=== PATIENT | female | born 1970 | race Asian ===

== ENCOUNTER → 2016-08-18 | Outpatient (CLI) | payer BC ==
[~2016-08-18] MED LIST: CITA20TA9 PO; LITH300T PO; VTMEUNK PO; vit B PO
[2016-08-18 17:55] LABS: BASO % 0.2 %; BASO ABS # 0.01 K/uL (0-0.2); COMPLETE YES; EOS % 1.3 %; HEMATOCRIT 38.3 % (37-47); IG% 0.2 %; LYMPH % 37.4 %; LYMPH ABS # 1.71 K/uL (1.2-3.4); MEAN CELL VOLUME 98.2 fL (80-100); MEAN CORPUSCULAR HEMOGLOBIN 33.3 pg (25-34); MEAN CORPUSCULAR HGB CONC 33.9 g/dl (32-36); MEAN PLATELET VOLUME 9.5 fL (7.4-10.4); MONO % 12.9 %; PLATELET COUNT 218 K/uL (130-400); WHITE BLOOD COUNT 4.57 K/uL (4.8-10.8)
[2016-08-18 18:30] LABS: ALB/GLOB RATIO 1.2 (0.9-2); ALKALINE PHOSPHATASE 41 U/L (45-117); ALT/SGPT 17 U/L (12-78); AMYLASE 54 U/L (25-115); AST/SGOT 15 U/L (15-37); BLOOD UREA NITROGEN 9 mg/dl (7-18); BUN/CREATININE RATIO 12.4 (10-20); CALCIUM 8.7 mg/dl (8.5-10.1); CARBON DIOXIDE 27 mmol/L (21-32); CHLORIDE 106 mmol/L (98-107); CREATININE 0.74 mg/dl (0.60-1.20); GLUCOSE 86 mg/dl (70-99); POTASSIUM 3.7 mmol/L (3.5-5.1); SODIUM 139 mmol/L (136-145)
== END | disposition home or self-care (01) ==
LOC: C.LAB 17:08
PROVIDERS: ATTEND Psychiatry & Neurology Psychiatry
DX: F33.40 Major depressive disorder, recurrent, in remission, unspecified (principal)

== ENCOUNTER → 2017-06-18 | Outpatient (CLI) | payer OTHER | END | disposition home or self-care (01) | LOC: C.LAB 21:52 | DX: Z02.83 Encounter for blood-alcohol and blood-drug test (principal) ==

== ENCOUNTER 2017-07-11 10:21 | Emergency (ER) | payer OTHER ==
[~2017-07-11] VITALS: Ht 165.1 cm; Wt 72.1 kg
[2017-07-11 10:31] VITALS: TEMP 36.9; Ht 165.1 cm; Wt 72.1 kg
[2017-07-11 11:52] VITALS: BP 149/79; PULSE 74; O2SAT 97
--- NOTE | 2017-07-11 21:21 | EMERGENCY ROOM VISIT NOTE ---
History First contact with patient: 10:59 Chief Complaint: HEAD INJURY (MINOR) Stated Complaint: CONCUSSION History of Present Illness The patient is a 47 year old female who presents to the Emergency Room with complaints of concussion-like symptoms after suffering a head injury on Monday. The patient reports that she tripped and struck her head on her bathroom wall. She believes that she did have loss of consciousness, but reports that her symptoms have been improving since her fall. 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 The patient does have a psychiatrist, and went to her, but was instructed that she should come to the emergency department for a physical exam in order to return to work. The patient currently complains only of a mild headache with fatigue. She denies any persistent visual symptoms, tinnitus, neck pain, nausea or other significant symptoms. She rates her discomfort a 4 out of 10 on my exam. Review of Systems 10 system review was performed and was negative except for pertinent positives and negatives as indicated in history of present illness Past Medical/Surgical History Medical Problems: (1) Anxiety (2) Depression (3) Migraine (4) [place] Teeth Removal Family History Unremarkable Social History Smoking Status: Current Every Day Smoker Alcohol Use: occasionally Marital Status: single Occupation Status: employed Current/Historical Medications Scheduled Citalopram Hydrobromide (Celexa), 30 MG PO DAILY [place] Carbonate (Lithobid Ext Rel), 300 MG PO QAM [place] Carbonate (Lithobid Ext Rel), 600 MG PO HS Tocopheryl Acet,Dl-Alpha (Vitamin E Unkown Dose), 1 TAB PO DAILY [vit B], 1 TAB PO DAILY Physical Exam Vital Signs Date Time Temp Pulse Resp B/P (MAP) Pulse Ox O2 Delivery O2 Flow Rate FiO2 07/11/17 11:52 74 16 149/79 97 07/11/17 11:05 20 97 07/11/17 10:31 36.9 60 20 135/62 97 Room Air Physical Exam CONSTITUTIONAL: Healthy and well nourished. Alert and oriented X 3 with positive affect. GCS 15. Patient does not appear in any acute distress. HEENT: Normocephalic, atraumatic. Pupils equal, round and reactive. No subconjunctival hemorrhage, epistaxis, hemotympanum, raccoon's eyes or ontiveros sign. NECK: Full active range of motion without discomfort. RESPIRATORY: Clear to auscultation bilaterally with no wheezing, crackles, rhonchi or stridor. CARDIOVASCULAR: Regular rate and rhythm with no murmurs, rubs or gallops. GASTROINTESTINAL: Bowel sounds present in all quadrants. MUSCULOSKELETAL: Full range of motion of all joints without discomfort. INTEGUMENTARY: No rash or other significant dermatologic conditions noted. NEUROLOGIC: Cranial nerves II-XII grossly intact. No focal neurologic deficits noted. No ataxia with ambulation. Negative pronator drift. Negative Romberg sign. Medical Decision & Procedures ED Course Patient history and physical exam were performed. Nurse's notes were reviewed. Vital signs were reviewed and were normal. The patient's physical and neurologic exam are normal. She reports that her symptoms are improving. At this point, I suggested conservative management. The patient reports that she has had a concussion before in the past. I explained to the patient that some concussions can take several weeks to resolve. I explained to the patient that I do not feel comfortable providing work restrictions, but rather would provide a note to work explaining that she did have a concussion, and should have limited activities until symptoms improve. The patient may follow-up with her PCP or the [facility]. The patient was encouraged to call this office, and if she needs a referral, contact her PCP for initial management. She was encouraged to take Tylenol or ibuprofen as needed for her headache. The patient was happy with plan of care, and rated her discomfort a 4 out of 10 at the conclusion of my exam. Medical Decision Blood Pressure Screening Patient's blood pressure: Normal blood pressure Impression Primary Impression: Concussion Departure Information Dispostion Home / Self-Care Condition GOOD Referrals Eleazar Murphy III, CRNP (PCP) Haydee De Leon MD Forms HOME CARE DOCUMENTATION FORM, IMPORTANT VISIT INFORMATION Patient Instructions Concussion, My Flipzu Additional Instructions Read concussion handout. Limited activities until symptoms improve. Ibuprofen or Tylenol as needed for pain. Suggest follow-up with your family doctor or the [facility] concussion clinic (Dr. De Leon) for further concussion management. Return to the emergency department for any progressively worsening symptoms. FOR WORK: Limited activities as tolerated secondary to concussion symptoms. Further work restrictions can be provided by family doctor or the concussion clinic. Problem Qualifiers Primary Impression: Concussion Encounter type: initial encounter Loss of consciousness presence/duration: with LOC of 30 min or less Qualified Codes: S06.0X1A - Concussion with loss of consciousness of 30 minutes or less, initial encounter
== END 2017-07-11 11:53 | disposition home or self-care (01) ==
LOC: C.EDB 10:23 → C.EDC 11:53
DX: S06.0X1A Concussion with loss of consciousness of 30 minutes or less, initial encounter (principal); W18.09XA Striking against other object with subsequent fall, initial encounter; F41.9 Anxiety disorder, unspecified; F32.9 Major depressive disorder, single episode, unspecified; F17.210 Nicotine dependence, cigarettes, uncomplicated; Z79.899 Other long term (current) drug therapy

== ENCOUNTER 2020-08-17 13:45 | Observation (INO) ==
[2020-08-17] MEDS ORDERED: ONDANSETRON INJ 2 MG/ML 2 ML VIAL IV STA (14:26)
--- NOTE | 2020-08-17 14:42 | Emergency Department Note ---
History of Present Illness General Chief complaint: Abdominal Pain Stated complaint: REFERRED BY DR. ALVAREZ Time Seen by Provider: 08/17/20 14:06 Source: patient Mode of arrival: ambulatory Limitations: no limitations History of Present Illness Maximum Pain Intensity: 6 This patient is a 50-year-old female who presents to the emergency department for evaluation of abdominal tenderness and fevers. Patient states that she had a total hysterectomy with bilateral oophorectomy and removal of a benign mass 2 weeks ago. She was seen in follow-up today and admitted that she has had fevers off and on since then. She has had significant nausea, although denies vomiting. She states that she has not been eating because she is afraid it will make her sick. Additionally, she has not been taking her medications due to her nausea and inability to take food with the medications. During her visit today, she was found to be very tender in the left upper quadrant and sent here for further evaluation. She reports she has had normal bowel movements. She denies any pain at rest. Patient also reportedly has had some significant weight loss since surgery. Home Medications Medication Instructions Recorded Confirmed Type multivitamin 1 tab PO QPM 05/05/20 08/17/20 History Medical Marijuana 1 dose INHALATION UD PRN 06/29/20 08/17/20 History biotin 1 mg PO QPM 06/29/20 08/17/20 History citalopram 10 mg tablet 10 mg PO QAM #90 tab 07/02/20 08/17/20 Rx citalopram 20 mg tablet 20 mg PO QAM #90 tab 07/02/20 08/17/20 Rx varenicline 0.5 mg (11)-1 mg (42) See Rx Instructions PO .as 07/02/20 08/17/20 Rx tablets in a dose pack directed #53 ea varenicline 1 mg tablet 1 mg PO BID 84 Days #168 tab 07/02/20 08/17/20 Rx ascorbic acid-collagen 3 cap PO DAILY 07/15/20 08/17/20 History oxycodone-acetaminophen 1 tab PO Q6H PRN #20 tab 08/03/20 08/17/20 Rx Allergies Allergy/AdvReac Type Severity Reaction Status Date / Time lamotrigine [From Lamictal] Allergy Severe Kole Verified 08/17/20 15:06 Rodney Syndrome latex Allergy Mild Rash Verified 08/17/20 15:06 Past Med/Surg History Medical History (Updated 08/18/20 @ 00:02 by Martha Diaz PA-C) Anxiety On meds and medical marijuana - well controlled Depressive disorder History of multiple concussions LAST EVENT 3 YEARS AGO 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 Seizure LAST EVENT OVER 1 YEAR AGO "MILD SEIZURE DISORDER/SHAKES ON THE INSIDE" CAUSED FROM ANXIETY Follows on with PCP/psychiatrist - no neurologist needed Urinary, incontinence, stress female Surgical History (Updated 08/17/20 @ 21:23 by Rogers Ruiz RN) H/O LEEP H/O total hysterectomy History of tonsillectomy Cougar teeth removed Family History Father Prostate cancer Colorectal cancer might have been - pt unsure if bladder or colon Cancer her dad just had surgery - she thinks for bladder cancer, could have been colon, she isn't 100% sure but thinks bladder Mother Depression Other No family history of adverse response to anesthesia Denies family history of Ovarian cancer Myocardial infarction Breast cancer Social History Smoking Status: Former smoker Tobacco Type: Cigarettes Age Started Using Tobacco: 13; Cigarettes Per Day: 6-10 CIG DAILY- TRYING TO QUIT PRIOR TO SURGERY - WILL BE STARTING CHANTIX; Smoking End Date: almost a month ago; Second Hand Exposure: No; Hx Alcohol Use: No Hx Substance Use: No Preferred Language: Ukrainian Communication Ability: Effective Visual Impairment: No Limitations Hearing Ability: Normal Fabricator Special Items Required: No Beliefs That Will Affect Care: None marital status: Current Living Situation: Alone Current Living Situation Comment: RENTING (1 OTHER PERSON IN HOUSE) current occupational status: employed current occupation: [employer] Other Information That Helps Us Care for You: No Feels Safe at Home: Yes Safety Concerns: Feels Safe At This Time Childhood Exposure to Second-Hand Smoke: No Dental Care, Regularly: Yes Physical Activity Frequency: Daily Seatbelt Use: always Sunscreen Use: No Assistive Devices: Glasses Assistive Devices Comment: Wears glasses Review of Systems A total of 10 systems reviewed and were otherwise negative Physical Exam Vital Signs Vital Signs - 24 hr 08/17/20 13:50 08/17/20 15:25 08/17/20 15:26 Temperature 36.5 C 36.7 C Temperature Source Oral Oral Pulse Rate 96 H 74 Pulse Rate [Right Finger] 77 Pulse Rate from SpO2 Sensor 74 Pulse Rhythm Regular Pulse Rhythm [Right Finger] Regular Pulse Strength Normal Respiratory Rate 18 16 16 Respiratory Effort / Characteristics Non-Labored Spontaneous Respiratory Depth Normal Normal Respiratory Pattern Regular Blood Pressure 105/69 106/62 Blood Pressure [Left Arm] 106/62 Blood Pressure Mean 81 76 Blood Pressure Mean [Left Arm] 76 Blood Pressure Position Sitting Pulse Oximetry 100 96 99 Oxygen Delivery Method Room Air Room Air Sepsis Recent Fever Within 48 Hours No Sepsis New/Unexplained Change in Mental Status No Sepsis Action Taken by Nursing No Action Required 08/17/20 15:29 08/17/20 15:30 08/17/20 15:40 Temperature Temperature Source Pulse Rate 77 77 76 Pulse Rate [Right Finger] Pulse Rate from SpO2 Sensor 77 77 76 Pulse Rhythm Pulse Rhythm [Right Finger] Pulse Strength Respiratory Rate 21 18 20 Respiratory Effort / Characteristics Respiratory Depth Respiratory Pattern Blood Pressure 108/63 Blood Pressure [Left Arm] Blood Pressure Mean 78 Blood Pressure Mean [Left Arm] Blood Pressure Position Pulse Oximetry 97 97 96 Oxygen Delivery Method Sepsis Recent Fever Within 48 Hours Sepsis New/Unexplained Change in Mental Status Sepsis Action Taken by Nursing 08/17/20 15:50 08/17/20 16:00 08/17/20 16:10 Temperature Temperature Source Pulse Rate 76 79 76 Pulse Rate [Right Finger] Pulse Rate from SpO2 Sensor 75 78 77 Pulse Rhythm Pulse Rhythm [Right Finger] Pulse Strength Respiratory Rate 21 17 19 Respiratory Effort / Characteristics Respiratory Depth Respiratory Pattern Blood Pressure 115/63 Blood Pressure [Left Arm] Blood Pressure Mean 80 Blood Pressure Mean [Left Arm] Blood Pressure Position Pulse Oximetry 97 97 97 Oxygen Delivery Method Sepsis Recent Fever Within 48 Hours Sepsis New/Unexplained Change in Mental Status Sepsis Action Taken by Nursing 08/17/20 16:20 08/17/20 16:30 08/17/20 16:31 Temperature Temperature Source Pulse Rate 77 82 76 Pulse Rate [Right Finger] Pulse Rate from SpO2 Sensor 77 82 77 Pulse Rhythm Pulse Rhythm [Right Finger] Pulse Strength Respiratory Rate 18 15 20 Respiratory Effort / Characteristics Respiratory Depth Respiratory Pattern Blood Pressure 113/66 Blood Pressure [Left Arm] Blood Pressure Mean 81 Blood Pressure Mean [Left Arm] Blood Pressure Position Pulse Oximetry 96 96 96 Oxygen Delivery Method Sepsis Recent Fever Within 48 Hours Sepsis New/Unexplained Change in Mental Status Sepsis Action Taken by Nursing 08/17/20 16:40 08/17/20 16:56 08/17/20 17:00 Temperature Temperature Source Oral Pulse Rate 78 85 79 Pulse Rate [Right Finger] 78 Pulse Rate from SpO2 Sensor 78 80 Pulse Rhythm Pulse Rhythm [Right Finger] Regular Pulse Strength Respiratory Rate 13 19 20 Respiratory Effort / Characteristics Non-Labored Respiratory Depth Normal Respiratory Pattern Blood Pressure Blood Pressure [Left Arm] 111/66 Blood Pressure Mean Blood Pressure Mean [Left Arm] 81 Blood Pressure Position Pulse Oximetry 97 99 Oxygen Delivery Method Room Air Sepsis Recent Fever Within 48 Hours Sepsis New/Unexplained Change in Mental Status Sepsis Action Taken by Nursing 08/17/20 17:01 08/17/20 17:10 08/17/20 17:20 Temperature Temperature Source Pulse Rate 80 80 74 Pulse Rate [Right Finger] Pulse Rate from SpO2 Sensor 80 80 74 Pulse Rhythm Pulse Rhythm [Right Finger] Pulse Strength Respiratory Rate 17 20 16 Respiratory Effort / Characteristics Respiratory Depth Respiratory Pattern Blood Pressure 113/70 Blood Pressure [Left Arm] Blood Pressure Mean 84 Blood Pressure Mean [Left Arm] Blood Pressure Position Pulse Oximetry 98 98 98 Oxygen Delivery Method Sepsis Recent Fever Within 48 Hours Sepsis New/Unexplained Change in Mental Status Sepsis Action Taken by Nursing 08/17/20 17:30 08/17/20 17:40 08/17/20 17:50 Temperature Temperature Source Pulse Rate 76 75 75 Pulse Rate [Right Finger] Pulse Rate from SpO2 Sensor 76 75 76 Pulse Rhythm Pulse Rhythm [Right Finger] Pulse Strength Respiratory Rate 20 21 15 Respiratory Effort / Characteristics Respiratory Depth Respiratory Pattern Blood Pressure 111/66 Blood Pressure [Left Arm] Blood Pressure Mean 81 Blood Pressure Mean [Left Arm] Blood Pressure Position Pulse Oximetry 98 97 98 Oxygen Delivery Method Sepsis Recent Fever Within 48 Hours Sepsis New/Unexplained Change in Mental Status Sepsis Action Taken by Nursing 08/17/20 18:00 08/17/20 18:10 Temperature Temperature Source Pulse Rate 75 77 Pulse Rate [Right Finger] Pulse Rate from SpO2 Sensor 75 79 Pulse Rhythm Pulse Rhythm [Right Finger] Pulse Strength Respiratory Rate 16 25 H Respiratory Effort / Characteristics Respiratory Depth Respiratory Pattern Blood Pressure 108/60 Blood Pressure [Left Arm] Blood Pressure Mean 76 Blood Pressure Mean [Left Arm] Blood Pressure Position Pulse Oximetry 98 98 Oxygen Delivery Method Sepsis Recent Fever Within 48 Hours Sepsis New/Unexplained Change in Mental Status Sepsis Action Taken by Nursing VITALS: Vitals are noted on the nurse's note and reviewed by myself. GENERAL: This is a 50-year-old female, in no acute distress, well-developed well-nourished. SKIN: The skin was without rashes. EARS: External auditory canals clear, tympanic membranes pearly park without erythema or effusion bilaterally. EYES: Pupils equal round and reactive to light and accommodation. NOSE: Patent, turbinates without inflammation or discharge. MOUTH: Mucous membranes moist. Tonsils are not enlarged. Pharynx without erythema or exudate. NECK: Supple without nuchal rigidity. No lymphadenopathy. HEART: Regular rate and rhythm without murmurs gallops or rubs. LUNGS: Clear to auscultation bilaterally without wheezes, rales or rhonchi. ABDOMEN: Positive bowel sounds x 4. Surgical incisions are well-healing with no signs of infection. Abdomen is soft, nondistended. Patient has significant tenderness in the left upper quadrant, swats away the examiner's hand during examination, states "that is very sensitive." NEURO: Patient was alert and oriented to person place and time. Course Consultations Consultation #1: Dr. Alvarez - [employer] Administered Medications Lactated Ringer's (Lr) 1,000 mls @ 125 mls/hr IV .Q8H MARGRET Stop: 09/16/20 18:44 Last Infusion: 08/17/20 22:00 Dose: 125 mls/hr Documented by: [id number] Infusion: 08/17/20 21:26 Dose: 0 mls/hr Documented by: [id number] Admin: 08/17/20 21:01 Dose: 125 mls/hr Documented by: [id number] Clindamycin Phosphate 900 mg/ (Dextrose) 56 mls @ 112 mls/hr IV Q8H MARGRET Stop: 08/19/20 20:59 Last Infusion: 08/17/20 22:00 Dose: 0 mls/hr Documented by: [id number] Admin: 08/17/20 21:26 Dose: 112 mls/hr Documented by: [id number] Discontinued Medications Ioversol (Optiray 300 100ml) 100 ml IV ONCE ONE Stop: 08/17/20 16:50 Last Admin: 08/17/20 16:49 Dose: 100 ml Documented by: [id number] Ondansetron HCl (Ondansetron Inj 2 Mg/Ml 2 Ml Vial) 4 mg IV NOW STA Stop: 08/17/20 14:27 Last Admin: 08/17/20 15:41 Dose: 4 mg Documented by: [id number] Medical Decision Making Differential Diagnosis Appendicitis, ovarian cyst, ovarian torsion, ectopic , TOA, PID, infe ctions, diverticulitis, UTI, obstruction, mesenteric ischemia, aortic pathology, inflammatory bowel disease, renal colic, PUD, pancreatitis, biliary pathology, hernia, volvulus, constipation, as well as other pathologies. Home Medications Current Medication List: was personally reviewed by me Laboratory Data Attestation: I reviewed the patient's lab results. Result diagrams: 08/17/20 15:00 08/17/20 15:00 Lab Results 08/17/20 08/17/20 08/17/20 Range/Units 15:00 15:00 15:05 WBC 13.24 H (4.8-10.8) K/uL RBC 3.32 L (4.2-5.4) M/uL Hgb 10.9 L (12.0-16.0) g/dL Hct 31.7 L (37-47) % MCV 95.5 (80-100) fL MCH 32.8 (25-34) pg MCHC 34.4 (32-36) g/dL RDW Std Deviation 43.4 (36.4-46.3) fL RDW Coeff of Kwesi 12.5 (11.5-14.5) % Plt Count 461 H (130-400) K/uL MPV 8.7 (7.4-10.4) fL Immature Gran % (Auto) 1.2 % Neut % (Auto) 78.1 % Lymph % (Auto) 6.4 % Freestone % (Auto) 12.4 % Eos % (Auto) 1.7 % Baso % (Auto) 0.2 % Neut # (Auto) 10.34 H (1.4-6.5) K/uL Lymph # (Auto) 0.85 L (1.2-3.4) K/uL Freestone # (Auto) 1.64 H (0.11-0.59) K/uL Eos # (Auto) 0.22 (0-0.5) K/uL Baso # (Auto) 0.03 (0-0.2) K/uL Immature Gran # (Auto) 0.16 H (0.00-0.02) K/uL Sodium 135 L (136-145) mmol/L Potassium 3.5 (3.5-5.1) mmol/L Chloride 99 (98-107) mmol/L Carbon Dioxide 25 (21-32) mmol/L Anion Gap 11.0 (3-11) BUN 12 (7-18) mg/dl Creatinine 0.61 (0.6-1.2) mg/dl Est Cr Clr Drug Dosing 99.3 ml/min Est GFR ( Amer) 122.5 ml/min Est GFR (Non-Af Amer) 105.7 ml/min BUN/Creatinine Ratio 19.1 (10-20) Glucose 99 (70-99) mg/dl Calcium 9.4 (8.5-10.1) mg/dl Total Bilirubin 0.5 (0.2-1) mg/dl AST 33 (15-37) U/L ALT 29 (12-78) U/L Alkaline Phosphatase 60 (45-117) U/L Total Protein 7.1 (6.4-8.2) gm/dl Albumin 2.4 L (3.4-5.0) gm/dl Globulin 4.7 H (2.5-4.0) gm/dl Albumin/Globulin Ratio 0.5 L (0.9-2) Lipase 88 (73-393) U/L COVID-19 Eval Order Covid19 at [facility] SARS-CoV-2 (PCR) (Negative) 08/17/20 Range/Units 15:05 WBC (4.8-10.8) K/uL RBC (4.2-5.4) M/uL Hgb (12.0-16.0) g/dL Hct (37-47) % MCV (80-100) fL MCH (25-34) pg MCHC (32-36) g/dL RDW Std Deviation (36.4-46.3) fL RDW Coeff of Kwesi (11.5-14.5) % Plt Count (130-400) K/uL MPV (7.4-10.4) fL Immature Gran % (Auto) % Neut % (Auto) % Lymph % (Auto) % Freestone % (Auto) % Eos % (Auto) % Baso % (Auto) % Neut # (Auto) (1.4-6.5) K/uL Lymph # (Auto) (1.2-3.4) K/uL Freestone # (Auto) (0.11-0.59) K/uL Eos # (Auto) (0-0.5) K/uL Baso # (Auto) (0-0.2) K/uL Immature Gran # (Auto) (0.00-0.02) K/uL Sodium (136-145) mmol/L Potassium (3.5-5.1) mmol/L Chloride (98-107) mmol/L Carbon Dioxide (21-32) mmol/L Anion Gap (3-11) BUN (7-18) mg/dl Creatinine (0.6-1.2) mg/dl Est Cr Clr Drug Dosing ml/min Est GFR ( Amer) ml/min Est GFR (Non-Af Amer) ml/min BUN/Creatinine Ratio (10-20) Glucose (70-99) mg/dl Calcium (8.5-10.1) mg/dl Total Bilirubin (0.2-1) mg/dl AST (15-37) U/L ALT (12-78) U/L Alkaline Phosphatase (45-117) U/L Total Protein (6.4-8.2) gm/dl Albumin (3.4-5.0) gm/dl Globulin (2.5-4.0) gm/dl Albumin/Globulin Ratio (0.9-2) Lipase (73-393) U/L COVID-19 Eval Order SARS-CoV-2 (PCR) NEGATIVE (Negative) Imaging Data Attestation: I personally reviewed and interpreted this imaging study as follows: Radiologist's Impression: Abdomen/Pelvis CT 08/17/20 14:[address] WITH IV CONTRAST CT DOSE: 338.97 mGy.cm HISTORY: postop fevers, nausea, left upper quadrant tenderness TECHNIQUE: Multiaxial CT images of the abdomen and pelvis were performed following the use of intravenous contrast. A dose lowering technique was utilized adhering to the principles of ALARA. COMPARISON STUDY: None. FINDINGS: Trace left pleural effusion. Otherwise, lung bases are clear. No pneumoperitoneum. No pneumatosis. No suspicious lytic or blastic osseous le sions. The liver demonstrates 2 subcentimeter hypodense lesions within the right hepatic lobe with the largest measuring 7 mm. These are technically too small to characterize but likely benign. The gallbladder, pancreas, spleen, adrenal glands, and kidneys are unremarkable. No hydronephrosis. No retroperitoneal lymphadenopathy. Normal caliber abdominal aorta. Mild bladder wall thickening. Status post recent hysterectomy. Multiple small scattered peripheral enhancing fluid collections seen throughout the abdomen and pelvis. Dominant pelvic fluid collection on image 356 measures 3.6 cm. Dominant fluid collection within the abdomen is anterior to the stomach on image 130 and measures 6.8 x 2.3 cm. These fluid collections demonstrate mild adjacent fat stranding and are concerning for small abscesses. No retroperitoneal lymphadenopathy. Normal caliber abdominal aorta. No bowel wall thickening or obstruction. Normal appendix. There are multiple small scattered fatty deposits seen throughout the abdomen and pelvis. The majority of these fatty deposits are seen within the small fluid collect ions. Dominant fatty deposit within the left side of the abdomen on image 108 measures 2.3 cm. IMPRESSION: 1. Status post hysterectomy. Multiple small scattered peripheral enhancing fluid collection seen throughout the abdomen and pelvis as described above. These are concerning for small abscesses. 2. There are multiple scattered small fatty deposits seen throughout the abdomen and pelvis. This could be due to areas of ruptured/disseminated ovarian teratoma. Therefore, the fluid collections could also represent areas of peritonitis rather than abscesses. One to 2 month abdomen and pelvis CT recommended to ensure stability of these fatty lesions.. 3. Trace left pleural effusion. ACT 112: Negative or not required by law. Electronically signed by: Blil Osuna M.D. 08/17/2020 5:35 PM ECG Data Attestation: I personally reviewed and interpreted this ECG as follows: Indication: + nausea Rate (beats per minute): 77 Rhythm: + normal sinus ECG Intervals/blocks: + Normal QRS ECG ST segments: + Normal ST segments Change: no significant change MDM Narrative Continuous kettleman: Order was placed for continuous kettleman. Patient was placed on the kettleman. Patient was noted to be in normal sinus rhythm at an initial rate of 75 bpm. The patient is a 50-year-old female who presents today for evaluation of nausea and fevers postoperatively. Patient is afebrile here but is reporting intermittent fevers at home. She does have a leukocytosis of 13,000. She is mildly anemic. CT of the abdomen/pelvis was performed and shows multiple fluid collections suggestive of small abscesses versus peritonitis. The case was discussed with Dr. Alvarez, the patient surgeon, who elected to admit the patient for washout tomorrow. Patient kept n.p.o. Patient informed of the treatment plan and was in agreement. Impression & Plan Peritonitis, acute generalized Discharge Plan Visit Data Chief Complaint: Abdominal Pain Stated Complaint: REFERRED BY DR. ALVAREZ ED Provider: Tee Gaspar ED Midlevel Provider: Martha Diaz Discharge Problem: Peritonitis, acute generalized Patient Disposition: Admitted As Inpatient Discharge Instructions Interventions: ED Discharge Assessment Last Done: 08/17/20 21:43
[2020-08-17 15:30] LABS: Basophils # (auto) 0.03 K/uL (0-0.2); Basophils % (auto) 0.2 %; Eosinophils # (auto) 0.22 K/uL (0-0.5); Eosinophils % (auto) 1.7 %; Hematocrit (blood only) 31.7 % (37-47); Hemoglobin 10.9 g/dL (12.0-16.0); Immature Granulocytes # (auto) 0.16 K/uL (0.00-0.02); Immature Granulocytes % (auto) 1.2 %; Lymphocytes # (auto) 0.85 K/uL (1.2-3.4); Lymphocytes % (auto) 6.4 %; Mean Corpuscular Hemoglobin 32.8 pg (25-34); Mean Corpuscular Hgb Conc 34.4 g/dL (32-36); Mean Corpuscular Volume 95.5 fL (80-100); Mean Platelet Volume 8.7 fL (7.4-10.4); Monocytes # (auto) 1.64 K/uL (0.11-0.59); Monocytes % (auto) 12.4 %; Neutrophils # (auto) 10.34 K/uL (1.4-6.5); Neutrophils % (auto) 78.1 %; Platelet Count 461 K/uL (130-400); RDW Coefficient of Variation 12.5 % (11.5-14.5); RDW Standard Deviation 43.4 fL (36.4-46.3); Red Blood Count 3.32 M/uL (4.2-5.4); White Blood Count 13.24 K/uL (4.8-10.8)
[2020-08-17 15:49] LABS: Albumin Level 2.4 gm/dl (3.4-5.0); BUN Creatinine Ratio 19.1 (10-20); Calcium 9.4 mg/dl (8.5-10.1); Creatinine Clr Calc Pharmacy 99.3 ml/min; Est GFR (African American) 122.5 ml/min; Est GFR (Non-African American) 105.7 ml/min; Potassium 3.5 mmol/L (3.5-5.1)
[2020-08-17 15:55] LABS: Albumin Globulin Ratio 0.5 (0.9-2); Bilirubin,Total 0.5 mg/dl (0.2-1); Globulin 4.7 gm/dl (2.5-4.0); Total Protein 7.1 gm/dl (6.4-8.2)
[2020-08-17] MEDS ORDERED: OPTIRAY 300 100mL IV ONE (16:49)
--- NOTE | 2020-08-17 17:36 | CT Scan Report ---
ABDOMEN AND PELVIS CT WITH IV CONTRAST CT DOSE: 338.97 mGy.cm HISTORY: postop fevers, nausea, left upper quadrant tenderness TECHNIQUE: Multiaxial CT images of the abdomen and pelvis were performed following the use of intrave nous contrast. A dose lowering technique was utilized adhering to the principles of ALARA. COMPARISON STUDY: None. FINDINGS: Trace left pleural effusion. Otherwise, lung bases are clear. No pneumoperitoneum. No pneum atosis. No suspicious lytic or blastic osseous lesions. The liver demonstrates 2 subcentimeter hypode nse lesions within the right hepatic lobe with the largest measuring 7 mm. These are technically too small to characterize but likely benign. The gallbladder, pancreas, spleen, adrenal glands, and kidne ys are unremarkable. No hydronephrosis. No retroperitoneal lymphadenopathy. Normal caliber abdominal aorta. Mild bladder wall thickening. Status post recent hysterectomy. Multiple small scattered periph eral enhancing fluid collections seen throughout the abdomen and pelvis. Dominant pelvic fluid collec tion on image 356 measures 3.6 cm. Dominant fluid collection within the abdomen is anterior to the st omach on image 130 and measures 6.8 x 2.3 cm. These fluid collections demonstrate mild adjacent fat s tranding and are concerning for small abscesses. No retroperitoneal lymphadenopathy. Normal caliber a bdominal aorta. No bowel wall thickening or obstruction. Normal appendix. There are multiple small sc attered fatty deposits seen throughout the abdomen and pelvis. The majority of these fatty deposits a re seen within the small fluid collections. Dominant fatty deposit within the left side of the abdome n on image 108 measures 2.3 cm. IMPRESSION: 1. Status post hysterectomy. Multiple small scattered peripheral enhancing fluid collection seen thro ughout the abdomen and pelvis as described above. These are concerning for small abscesses. 2. There are multiple scattered small fatty deposits seen throughout the abdomen and pelvis. 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 Therefore, the fluid collections could also represent areas of peritonitis rather than abscesses. One to 2 month abdomen and pelvis CT recom mended to ensure stability of these fatty lesions.. 3. Trace left pleural effusion. ACT 112: Negative or not required by law. Electronically signed by: Bill Osuna M.D. 08/17/2020 5:35 PM
--- NOTE | 2020-08-17 18:06 | Electrocardiogram Report ---
Test Reason : Blood Pressure : / mmHG Vent. Rate : 077 BPM Atrial Rate : 077 BPM P-R Int : 154 ms QRS Dur : 082 ms QT Int : 378 ms P-R-T Axes : 068 065 055 degrees QTc Int : 427 ms Normal sinus rhythm Normal ECG When compared with ECG of 09-JUL-2020 12:17, No significant change was found Confirmed by Rolando Kwok ([id number]) on 08/17/2020 6:05:59 PM Referred By: Kisha Alvarez Confirmed By:Simone Kwok
[2020-08-17] MEDS ORDERED: KETOROLAC 30 MG/ML VIAL IV ONE (18:31)
[2020-08-17] MEDS ORDERED: HYDROmorphone INJ 1 MG/ML SYRINGE IV PRN (18:34)
[2020-08-17] MEDS ORDERED: ONDANSETRON INJ 2 MG/ML 2 ML VIAL IV PRN (18:34)
[2020-08-17] MEDS ORDERED: PROMETHAZINE HCL 25 MG in SODIUM CHLORIDE 0.9% 50 ML IV PRN (18:34)
--- NOTE | 2020-08-17 18:48 | OB/GYN Consultation ---
Date of Consultation August 17, 2020 Assessment & Plan (1) Chemical peritonitis following a procedure: Patient evaluated through ER. I came to the ER while patient was in CT scan and viewed images, but no reading was yet available. I saw her being wheeled to CT but did not have opportunity to re-evaluate her myself at that time. I instead discussed her case with the assigned ER MD (who had not yet personally seen her) and left contact info for Martha, the midlevel who was assigned to Ms. Kam (and who had already seen her), to reach me once her evaluation was complete. At that time I was able to see that Ms Kam was afebrile, normotensive, had a leukocytosis of about 13 and mild elevated platelets over 400, normal creatinine and Hgb, otherwise reassuring vitals, and had evidenced some abdominal ttp on exam without rebound, similar to my own findings in office. I later received a call from Martha notifying me that the final read on CT was multiple small deposits in the abdomen, appearing c/w fat, and each with neighboring inflammation c/w a peritonitis. One larger collection anterior to the stomach of about 6cm had a more abscess-like appearance. In Ms. Kam's recent TLH/BSO, I removed a very large L ovarian dermoid cyst which was full of sebum and hair, and there was intra-abdominal spillage of a small amount of this material during dissection. At the time of surgery, when spillage was immediately recognized, suction was used to evacuate the cyst and a 4L large-vol ume lavage of warm saline was carried out, using the patient bed to position her in and out of Trendelenburg to "slosh" the saline thoroughly around the intestine and upper abdominal organs, and using the vaginal opening as a drain to evacuate it prior to cuff closure. Despite this washout procedure, the CT appearance today and the patient's clinical presentation both fit very convincingly with chemical peritonitis - a known possibility after spillage of sebum and hair from a mature cystic teratoma. That is, therefore, my working diagnosis. I have discussed this case with a colleague, and taken time to refresh my knowledge on updated management of this condition. The best results seem to be derived from repeat laparoscopy - and if necessary, exploratory laparotomy - to remove all remaining sebum and hair via large volume saline washout. In some cases this procedure seems to be required multiple times. I discussed with Ms. Kam by phone this evening my belief that she has a chemical peritonitis due to spilled sebum and hair that were not successfully rinsed out during her original procedure, and that my recommendation is that we return to the OR tomorrow for a repeat washout via laparoscopy if possible, or exploratory laparotomy if required due to conditions in the abdomen. We discussed r/b/a of this procedure, including the possibility of using the same incision sites, the possibility of making new ones, the possibility of an open vertical midline incision in addition the foregoing, the possibility of bowel injury either being discovered or created during this process, the possibility of extended hospital stay, and the possibility of prolonged slow diet advancement, as well as the possibility that laparoscopy will be all that is required and she may feel better / advance diet rapidly afterwards; she is aware that I am hesitant to make firm predictions about the course of her recovery, and that I will be better able to advise on that once I have seen the conditions inside her abdomen tomorrow. In theory this is a sterile inflammatory process, and her low leukocytosis and current afebrile status suggests that is the case in Ms. Kam, but as the vaginal cuff was open since she had concurrent TLH with removal of her dermoid, I cannot r/o that seeding of bacteria also occurred into the sebaceous material that remained in her abdomen. I'm using toradol now and prn overnight hoping to decrease inflammation somewhat. I will also add broad spectrum antibiotic overnight hoping to "cool off" any overlying bacterial peritonitis. She is ordered for and aware of NPO status now to ensure bowel is as decompressed as possible and minimize injury risk, an entry technique that is sensitive to likely acute adhesions will be utilized, and the high risk of bowel injury was discussed with the patient tonight specifically. IV pain management and antiemetic overnight will also be offered. She may well feel much better by the time of her planned surgery tomorrow, but I think the importance of removing the offending foreign material is paramount and we should have a very high threshold to change the plan away from repeat washout tomorrow. She was counseled on all of this and expressed understanding. She is in good spirits considering, and grateful to be getting relief from her discomfort at this time. The exact scheduling of her case tomorrow remains pending, as it's an add-on case. She is aware I'm available all day and will be in to see her and go through formal consent paperwork and re-discuss any questions before the OR tomorrow. I remain available overnight if needed, and the on-call in-house coverage Dr. Hanley is also aware of the above patient's presence on service should something require immediate action. History of Present Illness Allergies Allergy/AdvReac Type Severity Reaction Status Date / Time lamotrigine [From Lamictal] Allergy Severe Kole Verified 08/17/20 15:06 Rodney Syndrome latex Allergy Mild Rash Verified 08/17/20 15:06 Home Medications Medication Instructions Recorded Confirmed Type multivitamin 1 tab PO QPM 05/05/20 08/17/20 History Medical Marijuana 1 dose INHALATION UD PRN 06/29/20 08/17/20 History biotin 1 mg PO QPM 06/29/20 08/17/20 History citalopram 10 mg tablet 10 mg PO QAM #90 tab 07/02/20 08/17/20 Rx citalopram 20 mg tablet 20 mg PO QAM #90 tab 07/02/20 08/17/20 Rx varenicline 0.5 mg (11)-1 mg (42) See Rx Instructions PO .as 07/02/20 08/17/20 Rx tablets in a dose pack directed #53 ea varenicline 1 mg tablet 1 mg PO BID 84 Days #168 tab 07/02/20 08/17/20 Rx ascorbic acid-collagen 3 cap PO DAILY 07/15/20 08/17/20 History oxycodone-acetaminophen 1 tab PO Q6H PRN #20 tab 08/03/20 08/17/20 Rx Patient History Medical History Anxiety On meds and medical marijuana - well controlled Depressive disorder History of multiple concussions LAST EVENT 3 YEARS AGO 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 Seizure LAST EVENT OVER 1 YEAR AGO "MILD SEIZURE DISORDER/SHAKES ON THE INSIDE" CAUSED FROM ANXIETY Follows on with PCP/psychiatrist - no neurologist needed Urinary, incontinence, stress female Surgical History H/O LEEP History of tonsillectomy [place] teeth removed Family History Father Prostate cancer Colorectal cancer might have been - pt unsure if bladder or colon Cancer her dad just had surgery - she thinks for bladder cancer, could have been colon, she isn't 100% sure but thinks bladder Mother Depression Other No family history of adverse response to anesthesia Denies family history of Ovarian cancer Myocardial infarction Breast cancer Social History Smoking Status: Never smoker Tobacco Type: Cigarettes Age Started Using Tobacco: 13; Cigarettes Per Day: 6-10 CIG DAILY- TRYING TO QUIT PRIOR TO SURGERY - WILL BE STARTING CHANTIX; Second Hand Exposure: No; Hx Alcohol Use: Yes Alcohol type: beer Hx Substance Use: Yes Last Used Substance Other:: RX MARIJAUNA ONLY Preferred Language: Bangladeshi Visual Impairment: No Limitations Hearing Ability: Normal Clinical Practice Consultant Required: No Beliefs That Will Affect Care: None marital status: Current Living Situation: Other Current Living Situation Comment: RENTING (1 OTHER 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 IN HOUSE) current occupational status: employed current occupation: [employer] in [place] Feels Safe at Home: Yes Childhood Exposure to Second-Hand Smoke: No Dental Care, Regularly: Yes Physical Activity Frequency: Daily Seatbelt Use: always Sunscreen Use: No Assistive Devices: Glasses Results & Data ([facility]) Vital Signs (Past 12 Hours) Vital Signs Temp Pulse Pulse Resp BP BP Pulse Ox 08/17/20 18:00 75 16 108/60 98 08/17/20 17:50 75 15 98 08/17/20 17:40 75 21 97 08/17/20 17:30 76 20 111/66 98 08/17/20 17:20 74 16 98 08/17/20 17:10 80 20 98 08/17/20 17:01 80 17 113/70 98 08/17/20 17:00 79 78 20 111/66 99 08/17/20 16:56 85 19 08/17/20 16:40 78 13 97 08/17/20 16:31 76 20 113/66 96 08/17/20 16:30 82 15 96 08/17/20 16:20 77 18 96 08/17/20 16:10 76 19 97 08/17/20 16:00 79 17 115/63 97 08/17/20 15:50 76 21 97 08/17/20 15:40 76 20 96 08/17/20 15:30 77 18 108/63 97 08/17/20 15:29 77 21 97 08/17/20 15:26 98.1 F 77 16 106/62 99 08/17/20 15:25 74 16 106/62 96 08/17/20 13:50 97.7 F 96 H 18 105/69 100
[2020-08-17] MEDS: LACTATED RINGER'S 1,000 ML IV SCH (21:01)
[2020-08-17] MEDS: CLINDAMYCIN 900 MG in DEXTROSE 5% 50 ML IV SCH (21:26)
[2020-08-18] MEDS: KETOROLAC TROMETHAMINE 15 MG/ML VIAL IV PRN ×2 (03:36→21:46)
[2020-08-18] MEDS: CLINDAMYCIN 900 MG in DEXTROSE 5% 50 ML IV SCH ×2 (04:53→17:32)
[2020-08-18] MEDS: LACTATED RINGER'S 1,000 ML IV SCH ×2 (04:57→15:15)
[2020-08-18 05:20] LABS: Appearance Urine Clear (Clear); Bilirubin Urine 1+ (Negative); Blood Urine 3+ (Negative); Color Urine Amber; Glucose Urine UA Negative (Negative); Ketones Urine 2+ (Negative); Leukocyte Esterase Urine Negative (Negative); Nitrite Urine Negative (Negative); Protein Urine 1+ (Negative); Specific Gravity Urine 1.015 (1.000-1.030); Urobilinogen Urine Positive (Negative); pH Urine 6.5 (4.5-7.5)
[2020-08-18 05:43] LABS: Epithelial Cell Urine 0-5 /lpf (0-5)
[2020-08-18 05:44] LABS: Bacteria Urine Negative (Negative)
[2020-08-18 06:50] LABS: Basophils # (auto) 0.03 K/uL (0-0.2); Basophils % (auto) 0.3 %; Eosinophils # (auto) 0.39 K/uL (0-0.5); Eosinophils % (auto) 4.4 %; Hematocrit (blood only) 30.3 % (37-47); Hemoglobin 10.4 g/dL (12.0-16.0); Immature Granulocytes # (auto) 0.11 K/uL (0.00-0.02); Immature Granulocytes % (auto) 1.2 %; Lymphocytes # (auto) 0.82 K/uL (1.2-3.4); Lymphocytes % (auto) 9.2 %; Mean Corpuscular Hemoglobin 32.9 pg (25-34); Mean Corpuscular Hgb Conc 34.3 g/dL (32-36); Mean Corpuscular Volume 95.9 fL (80-100); Mean Platelet Volume 8.6 fL (7.4-10.4); Monocytes # (auto) 0.98 K/uL (0.11-0.59); Monocytes % (auto) 10.9 %; Neutrophils # (auto) 6.63 K/uL (1.4-6.5); Platelet Count 437 K/uL (130-400); RDW Coefficient of Variation 12.6 % (11.5-14.5); Red Blood Count 3.16 M/uL (4.2-5.4); White Blood Count 8.96 K/uL (4.8-10.8)
[2020-08-18 07:16] LABS: BUN Creatinine Ratio 20.2 (10-20); Calcium 8.9 mg/dl (8.5-10.1); Creatinine Clr Calc Pharmacy 102.6 ml/min; Est GFR (African American) 123.9 ml/min; Est GFR (Non-African American) 106.9 ml/min; Potassium 3.5 mmol/L (3.5-5.1)
[2020-08-18] MEDS ORDERED: MIDAZOLAM HCL 1 MG/ML 2ML VIAL ONE (10:05)
[2020-08-18] MEDS ORDERED: LIDOCAINE HCL 2% 2 ML VIAL/AMP(20MG/ML) INFIL ONE (10:05)
[2020-08-18] MEDS ORDERED: ONDANSETRON INJ 2 MG/ML 2 ML VIAL ONE (10:05)
[2020-08-18] MEDS ORDERED: GLYCOPYRROLATE 0.2 MG/ML VIAL ONE ×2 (10:05→13:00)
[2020-08-18] MEDS ORDERED: fentaNYL citrate 100 MCG/2 ML VIAL ONE ×4 (10:05→13:33)
[2020-08-18] MEDS ORDERED: PROPOFOL IV EMULSION 10 MG/ML 20 ML VIAL IV ONE (10:05)
[2020-08-18] MEDS ORDERED: DEXAMETHASONE SOD INJ 4 MG/ML VIAL ONE (10:05)
[2020-08-18] MEDS ORDERED: NEOSTIGMINE METHYLSULFATE 1 MG/ML 10ML VIAL ONE (10:05)
--- NOTE | 2020-08-18 10:10 | Anesthesiology Consultation ---
Date of Service August 18, 2020 History Surgery Operation Date: 08/18/20 08:50 Proposed Procedures p Diagnostic Laparoscopy, Possible Exploratory Laparotomy - Kisha Alvarez MD Height/Weight Height: 5 ft 5 in Weight: 66.224 kg Allergies Allergy/AdvReac Type Severity Reaction Status Date / Time lamotrigine [From Lamictal] Allergy Severe Kole Verified 08/17/20 15:06 Rodney Syndrome latex Allergy Mild Rash Verified 08/17/20 15:06 Medications Home Medications Medication Instructions Recorded Confirmed Last Taken multivitamin 1 tab PO QPM 05/05/20 08/17/20 08/02/20 Medical Marijuana 1 dose INHALATION UD PRN 06/29/20 08/17/20 08/02/20 17:00 biotin 1 mg PO QPM 06/29/20 08/17/20 08/02/20 citalopram 10 mg tablet 10 mg PO QAM #90 tab 07/02/20 08/17/20 08/02/20 11:00 citalopram 20 mg tablet 20 mg PO QAM #90 tab 07/02/20 08/17/20 08/02/20 11:00 varenicline 0.5 mg (11)-1 mg (42) See Rx Instructions PO .as 07/02/20 08/17/20 08/03/20 05:00 tablets in a dose pack directed #53 ea varenicline 1 mg tablet 1 mg PO BID 84 Days #168 tab 07/02/20 08/17/20 08/03/20 05:00 ascorbic acid-collagen 3 cap PO DAILY 07/15/20 08/17/20 08/02/20 oxycodone-acetaminophen 1 tab PO Q6H PRN #20 tab 08/03/20 08/17/20 Unknown Active Medications Generic Name Dose Route Start Last Admin Trade Name Freq PRN Reason Stop Dose Admin Lactated Ringer's 1,000 mls @ 125 mls/hr 08/17/20 18:45 08/18/20 04:57 Lr IV 09/16/20 18:44 125 mls/hr .Q8H MARGRET Administration Clindamycin Phosphate 900 mg/ 56 mls @ 112 mls/hr 08/17/20 21:00 08/18/20 05:25 Dextrose IV 08/19/20 20:59 Infused Q8H MARGRET Infusion Ketorolac Tromethamine 15 mg 08/18/20 01:00 08/18/20 03:36 Ketorolac Tromethamine 15 Mg/Ml Vial IV 08/23/20 00:59 15 mg Q6H PRN Administration Pain Past Medical History Medical History (Updated 08/18/20 @ 00:02 by Martha Diaz PA-C) Anxiety On meds and medical marijuana - well controlled Depressive disorder History of multiple concussions LAST EVENT 3 YEARS AGO 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 Seizure LAST EVENT OVER 1 YEAR AGO "MILD SEIZURE DISORDER/SHAKES ON THE INSIDE" CAUSED FROM ANXIETY Follows on with PCP/psychiatrist - no neurologist needed Urinary, incontinence, stress female Past Family History Family History Father Prostate cancer Colorectal cancer might have been - pt unsure if bladder or colon Cancer her dad just had surgery - she thinks for bladder cancer, could have been colon, she isn't 100% sure but thinks bladder Mother Depression Other No family history of adverse response to anesthesia Denies family history of Ovarian cancer Myocardial infarction Breast cancer Past Surgical History Surgical History (Updated 08/17/20 @ 21:23 by Rogers Ruiz RN) H/O LEEP H/O total hysterectomy History of tonsillectomy [place] teeth removed Social History Smoking Status: Former smoker tobacco type: cigarettes Smoking cigarettes per day: 6-10 CIG DAILY- TRYING TO QUIT PRIOR TO SURGERY - WILL BE STARTING CHANTIX Smoking End Date: almost a month ago Hx Alcohol Use: No Alcohol type: beer alcohol intake frequency: a few times a month Hx Substance Use: No substance use type: does not use Last Used Substance Other:: RX MARIJAUNA ONLY Physical Exam Vital Signs Last Vital Signs Temp 37.2 C 08/18/20 04:47 Pulse 73 08/18/20 04:47 Resp 18 08/18/20 04:47 BP 86/52 L 08/18/20 04:47 Pulse Ox 97 08/17/20 21:02 Testing Laboratory Results 08/18/20 06:25 08/18/20 06:25 Urine Color [place]ma 08/18/20 05:00 Urine Appearance Clear (Clear) 08/18/20 05:00 Urine pH 6.5 (4.5-7.5) 05/18/21 05:00 Ur Specific [place] 1.015 (1.000-1.030) 08/18/20 05:00 Urine Protein 1+ (Negative) H 08/18/20 05:00 Urine Glucose (UA) Negative (Negative) 08/18/20 05:00 Urine Ketones 2+ (Negative) H 08/18/20 05:00 Urine Nitrite Negative (Negative) 08/18/20 05:00 Ur Leukocyte Esterase Negative (Negative) 08/18/20 05:00 Urine RBC 5-10 /hpf (0-4) H 08/18/20 05:00 Urine WBC 10-30 /hpf (0-5) H 08/18/20 05:00 Ur Epithelial Cells 0-5 /lpf (0-5) 08/18/20 05:00 Electrocardiogram Date: 08/17/20 Normal sinus rhythm Normal ECG When compared with ECG of 09-JUL-2020 12:17, No significant change was found Confirmed by Rolando Kwok ([id number]) on 08/17/2020 6:05:59 PM
--- NOTE | 2020-08-18 10:46 | History & Physical Bridge Note ---
Date of Service August 18, 2020 History & Physical Bridge Note I have examined the patient, reviewed the History & Physical and in the interval since the performance of the History & Physical I have noted the following changes of clinical significance: no changes noted. Review of chart overnight completed, currently afebrile, BP this AM a bit low but she is not tachycardic and likely this is due to her being at rest. Electrolytes normalized, leukocytosis normalized, platelets improved vs slight diluted, slight hemodilution evident. Pain managed. Plan remains for washout today, with formal written consent being confirmed in pre-op area.
[2020-08-18] MEDS ORDERED: HYDROmorphone INJ 1 MG/ML SYRINGE IV PRN (11:07)
[2020-08-18] MEDS ORDERED: ONDANSETRON INJ 2 MG/ML 2 ML VIAL IV PRN (11:07)
[2020-08-18] MEDS ORDERED: ePHEDrine sulfate 50 MG/ML AMP IV PRN (11:07)
[2020-08-18] MEDS ORDERED: fentaNYL citrate 100 MCG/2 ML VIAL IV PRN (11:07)
[2020-08-18] MEDS ORDERED: ATROPINE SULFATE 0.1 MG/ML 10ML SYR IV PRN (11:07)
[2020-08-18] MEDS ORDERED: ceFAZolin 2000MG 2,000 MG/15 ML SYR IV ONE (11:54)
[2020-08-18] MEDS ORDERED: ROCURONIUM BROMIDE 10 MG/ML 5 ML VIAL IV ONE (12:09)
[2020-08-18] MEDS ORDERED: KETOROLAC 30 MG/ML VIAL ONE (13:12)
--- NOTE | 2020-08-18 13:50 | Operative Report ---
PG Post Operative Report Pre & Post Diagnosis Operation Date: 08/18/20 08:50 Pre-Op Diagnosis: Chemical Peritonitis s/p prior teratoma spillage Post-Op Diagnosis: same I identified the patient and participated in the time-out.: Yes Procedure Operation Date: 08/18/20 08:50 Actual Procedures Diagnostic Laparoscopy, lysis of adhesions and abdominal washout Surgeon Kisha Alvarez MD Licensed Club Manager DO Clarita Estimated Blood Loss 10 Findings See Below Specimens Hair and inflammatory tissue retrieved from abdomen Anesthesia Type General Complications none Disposition Accompanied Patient To Recovery: Yes Description of Procedure Donny was placed on the table in dorsal lithotomy position using yellofin stirrups prepped and draped in a sterile manner and a hard time out was taken prior to proceeding. A tipton catheter was placed. EUA was performed to examine the vaginal cuff, using reaves specula, and this revealed an appropriately-healing closed cuff with suture material still present, no bleeding, no pus or discharge, and no openings or gaps. Attention was turned to the abdomen where the prior supraumbilical incision was sharply re-opened to the subcutaneous tissue, then two hemostats were used to bluntly dissect to the fascia, which was grasped and elevated. This was sharply incised using Metzenbaums, and the opening was bluntly extended by opening a hemostat inside it. A stay-suture was placed at the fascia for later use. The surgeon's finger was used to explore the opening and sweep away bowel adhesions around the site. These were filmy and easy to sweep clear, but were plentiful and encountered nearly 360' around the opening. A Wu trocar was placed through the opening thus created and the cuff inflated, then the camera was placed while gas insufflation proceeded to 15. Trendelenburg position was instituted. The abdomen and pelvis were seen to be impressively involved with peritoneal inflammation and adhesions, some filmy and some thick/white and more organized, with some pockets of yellow l iquid fat visible both within and separate from the adhesions (the liquid / free portion was small and may have been liberated by the blunt dissection inherent in accessing the abdomen). Under direct visualization, the RLQ port was placed, by first sharply re-opening the prior skin incision, then passing an 11mm trocar through avoiding all visible adhesions. General surgeon Dr. Williams Mccollum was asked to come to the room to view the abdomen and render an opinion on the plan of care, given the appearance of the bowel and peritoneum, ensuring that it remained reasonable to attempt laparoscopic mobilization and irrigation rather than requiring laparotomy. He was given a case presentation and observed while several adhesions were gently lysed by bluntly pressing the bowel down away from the peritoneal surface, from which it easily peeled free, and suctioning away any pockets of fatty material which were exposed. He agreed with the plan to lyse what mobilized easily with blunt approach, copiously irrigate, and observe postoperatively with gradual advancement of diet and continued antibiotics. There was no sign of bowel contents or bowel injury and he did not need to participate directly in the surgery. His opinion and input were greatly appreciated. We continued with a combination of blunt gentle mobilization of the bowel away from the abdominal wall and other loops of bowel / omentum to restore normal anatomy as much as possible, without applying undue tension, and with irrigation and suction of any inflammatory or fatty material that was uncovered during the process. A large pocket of fatty material was lysed and recovered from the area anterior to the stomach and reaching to the liver edge, likely c/w the larger collection seen on CT. Smaller pockets, including several in the pelvis, were similarly unroofed and drained. Near the L IP ligament pedicle, which was well visualized and intact, two hairs were seen and were recovered using an atraumatic grasper. These will be sent to pathology along with a sample of the thicker inflammatory tissue coating the more organized adhesions. After all easily-lysed adhesions were addressed, we moved on to filling the abdomen with 2L at a time of warmed NSS via the trocars, and then suctioning it clean using a laparoscopic suction-wire harness assembler tool. A total of 2L were used during the lysis of adhesions work for hydrodissection and clearing of debris; the next two liters were done while the patient was in Trendelenburg, then 2L with her flat, and then 2L with her in reverse Trendelenburg, for a total of 8L of NSS abdominal washout which was directed to address all portions of the abdominal cavity. In the beginning, homogenized fatty material gave the retrieved fluid a nearly milky look. At completion, the fluid retrieved was clear. Photographs were taken throughout the course of the case. Once irrigation was complete, the patient was placed flat and all trocars were removed. The umbilical and RLQ port sites were closed with UR6 suture at the fascia. All three were then closed using 4-0 monocryl with a dermabond dressing applied. The tipton was removed, and the patient was transferred in stable co ndition to the PACU. I attest to the content of the Intraoperative Record and any orders documented therein. Any exceptions are noted below.
--- NOTE | 2020-08-18 14:28 | Anesthesiology Progress Note ---
Date of Service August 18, 2020 Anesthesia Post Procedure Vital Signs Vital Signs: Temp Pulse Pulse Pulse Pulse Resp BP 08/18/20 14:15 67 16 08/18/20 14:05 69 22 08/18/20 13:55 72 20 08/18/20 13:45 70 22 08/18/20 13:39 36.0 C L 74 20 08/18/20 10:47 37.1 C 69 18 08/18/20 07:50 36.7 C 67 21 08/18/20 04:47 37.2 C 73 18 08/17/20 23:30 36.8 C 74 18 08/17/20 21:02 36.9 C 71 18 08/17/20 21:00 36.9 C 71 18 08/17/20 20:40 70 24 08/17/20 20:30 69 18 08/17/20 20:20 67 22 08/17/20 20:10 71 20 08/17/20 20:00 67 20 08/17/20 19:50 72 25 H 08/17/20 19:40 70 20 08/17/20 19:30 75 25 H 08/17/20 19:20 72 20 08/17/20 19:10 72 19 08/17/20 19:00 76 12 08/17/20 18:50 75 26 H 08/17/20 18:40 73 19 08/17/20 18:34 78 14 08/17/20 18:10 77 25 H 08/17/20 18:00 75 16 108/60 08/17/20 17:50 75 15 08/17/20 17:40 75 21 08/17/20 17:30 76 20 111/66 08/17/20 17:20 74 16 08/17/20 17:10 80 20 08/17/20 17:01 80 17 113/70 08/17/20 17:00 79 78 20 08/17/20 16:56 85 19 08/17/20 16:40 78 13 08/17/20 16:31 76 20 113/66 08/17/20 16:30 82 15 08/17/20 16:20 77 18 08/17/20 16:10 76 19 08/17/20 16:00 79 17 115/63 08/17/20 15:50 76 21 08/17/20 15:40 76 20 08/17/20 15:30 77 18 108/63 08/17/20 15:29 77 21 08/17/20 15:26 36.7 C 77 16 08/17/20 15:25 74 16 106/62 BP BP Pulse Ox 08/18/20 14:15 101/53 L 96 08/18/20 14:05 104/55 L 97 08/18/20 13:55 106/60 96 08/18/20 13:45 127/71 100 08/18/20 13:39 112/68 100 08/18/20 10:47 108/56 L 98 08/18/20 07:50 102/62 98 08/18/20 04:47 86/52 L 08/17/20 23:30 92/58 L 08/17/20 21:02 108/60 97 08/17/20 21:00 108/60 97 08/17/20 20:40 08/17/20 20:30 08/17/20 20:20 08/17/20 20:10 08/17/20 20:00 97 08/17/20 19:50 96 08/17/20 19:40 97 08/17/20 19:30 96 08/17/20 19:20 97 08/17/20 19:10 97 08/17/20 19:00 97 08/17/20 18:50 98 08/17/20 18:40 98 08/17/20 18:34 08/17/20 18:10 98 08/17/20 18:00 98 08/17/20 17:50 98 08/17/20 17:40 97 08/17/20 17:30 98 08/17/20 17:20 98 08/17/20 17:10 98 08/17/20 17:01 98 08/17/20 17:00 111/66 99 08/17/20 16:56 08/17/20 16:40 97 08/17/20 16:31 96 08/17/20 16:30 96 08/17/20 16:20 96 08/17/20 16:10 97 08/17/20 16:00 97 08/17/20 15:50 97 08/17/20 15:40 96 08/17/20 15:30 97 08/17/20 15:29 97 08/17/20 15:26 106/62 99 08/17/20 15:25 96 Pain Intensity Medial Abdomen: Pain Intensity: 3 Transfer of Care Handoff Completed per policy Notes Mental Status: alert / awake / arousable and participated in evaluation Patient Amnestic to Procedure: Yes Nausea / Vomiting: adequately controlled Pain: adequately controlled Airway Patency, RR, SpO2: stable & adequate BP & HR: stable & adequate Hydration State: stable & adequate Anesthetic Complications: no major complications apparent and Pt Satisfied with anesthetic care
[2020-08-18] MEDS: VARENICLINE 1 MG TAB PO SCH (21:15)
[2020-08-19] MEDS: LACTATED RINGER'S 1,000 ML IV SCH ×2 (02:06→13:12)
[2020-08-19] MEDS: CLINDAMYCIN 900 MG in DEXTROSE 5% 50 ML IV SCH ×3 (02:06→17:33)
[2020-08-19] MEDS: KETOROLAC TROMETHAMINE 15 MG/ML VIAL IV PRN (06:03)
[2020-08-19] MEDS ORDERED: IBUPROFEN 600 MG TAB PO PRN (07:19)
[2020-08-19] MEDS ORDERED: oxyCODONE/ACETAMINOPHEN 5mg/325mg TAB PO PRN (07:19)
--- NOTE | 2020-08-19 07:32 | Gynecologic Progress Note ---
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 Small amounts of hair were indeed retrieved, and significant pus possibly mixed with sebum was evacuated from the abdomen, with blunt lysis of adhesions throughout the abdominal cavity also being performed. This morning she is showing signs of clinical improvement with a benign belly exam, resolution of nausea, return of appetite and tolerating liquid diet. Will advance to solids this AM, but hypoactive bowel sounds and lack of flatus do persist, so patient was counseled about risk of ileus, and encouraged to ambulate plenty and take it slow with her diet - small amounts of solids (tea and toast, piece of fruit later, etc) are wiser than eating the full tray delivered. Continue incentive spirometry, PO pain management today, and possibility exists of D/C home this evening if progress continues. Has been afebrile throughout stay here, and would discharge with PO antibiotics as well. Continue IV clinda while here. Admission and Anticipated Discharge Date Admission Date: August 17, 2020 Subjective Patient feeling much better this morning than she did pre-op. Nausea is 100% resolved per patient. Has tenderness in abdomen specifically at the incision si lisa, but the global abdomen feels better. She is sitting upright watching TV, in good spirits, talkative during my visit. Has ambulated to bathroom and voiding without difficulty, no BM yet, and denies flatus yet. Did eat liquid tray x2 yesterday and really enjoyed the hot broth, has missed eating hot food. We discussed intraoperative findings and showed her photos from the laparoscopy. Physical Exam Constitutional: WD/WN, vitals as above Eyes: PERRL, conjunctivae normal, anicteric sclerae ENMT: Ears: no hearing impairment Nose: no external nose abnormality Mouth: + poor dentition (as prior, teeth not straight / evidence of lacking care.); no lip abnormality Neck: trachea midline, no thyromegaly normal visual inspection Respiratory: normal respiratory effort and able to speak in complete sentences; no respiratory distress and does not use accessory muscles Cardiovascular: RRR, no murmur, no edema Gastrointestinal (Abdomen): Inspection/Auscultation: abdomen normal to inspection, + abdominal surgical incision (c/d/i x3, all glue still intact) and + hypoactive bowel sounds (Sounds not absent, but very diminished. Tone normal when they occur.); abdomen not distended, no abdominal wall ecchymosis and no abdominal edema Percussion/Palpation: + abdomen tender (appropriately post-op tender), abdomen soft and normal to percussion; no guarding, abdomen not rigid, not tympanic to percussion and no fluid wave Noted that overnight the sprinkler driver states RLQ incision has a gap. This was apparently per report of patient, not by RN exam, and patient states that she told the nurse it was gapped because the patient thought it looked different than the others. That incision was closed by my partner, and she uses a technique which everts the edges slightly, so it looks somewhat different ("more poochy-out" per the patient) than the other two which I closed. The incision is completely intact and the glue over it is undisturbed, so I'm confident there was never actually a gap. Discussed with the patient that this technique has merit and it will likely heal flat, and is nothing to be concerned about. Psychiatric: A+Ox3, euthymic affect Results & Data ([facility]) Vital Signs (Past 12 Hours) Vital Signs Temp Pulse Pulse Resp BP Pulse Ox 08/19/20 03:30 98.4 F 69 69 18 119/71 98 08/19/20 00:10 98.4 F 65 65 18 100/59 L 97 08/18/20 19:40 97.5 F L 59 L 59 L 18 103/65 98 PG Care Time/CCT Total # of Minutes Spent Total Time Spent with Patient: Total time spent is greater than 50% in coordination of care (as documented) at patient's floor/unit and/or counseling patient: Coding Level of Care Code 19340 Subseq Hosp Care Lvl 2 Diagnoses Chemical peritonitis following a procedure T81.61XA
[2020-08-19] MEDS ORDERED: CITALOPRAM 20 MG TAB PO SCH ×2 (09:00)
[2020-08-19] MEDS: VARENICLINE 1 MG TAB PO SCH (09:25)
--- NOTE | 2020-08-19 17:23 | Gynecologic Progress Note ---
Date of Service August 19, 2020 Assessment & Plan (1) Chemical peritonitis following a procedure: Patient has significant clinical improvement with return of bowel function, resolution of nausea, has not required narcotic pain meds and is not c/o pain, and is afebrile x more than 24 hours here with resolution of leukocytosis as well. She is now taking regular diet PO, taking her home meds PO, and is at this time ready for discharge home. Given her prior condition, and the fact that she presented only at the time of a routine checkup yet was severely ill, I have spent significant time at her bedside today reviewing specific precautions and reasons to call me. She took notes of these while we chatted, and I have written instructions in her discharge notes here as well. She will take colace daily to counteract any constipation as she is fearful of that occurring since she has not had a BM yet postoperatively; reassured her this may yet take a few days due to anesthesia and decreased bowel motility perioperatively and still be normal. She can use NSAIDS, then percocet if needed, but should notify me if she requires narcotic twice or more in a day. She should continue PO clindamycin for 10 days. My office will also reach out to schedule a visit in roughly a week, but patient is aware that she should call us if that does not occur as expected, and that she should persist in reaching out to us if she needs to speak to someone but does not promptly hear back. She does have the patient portal and is aware of messaging capability as well. Admission and Anticipated Discharge Date Admission Date: August 17, 2020 Subjective Patient feels well and had a good day today. No nausea, ate her regular food trays for breakfast and lunch today and dinner is now arriving, she has an appetite. Did pass gas today. Ambulating without difficulty. Voiding without difficulty. No BM yet, no urge to go. Denies pain at this time. Incisions look good. Concerned about when she will have a BM and wonders how long it will be until she does. Physical Exam Constitutional: WD/WN, vitals as above Eyes: PERRL, conjunctivae normal, anicteric sclerae ENMT: Ears: no hearing impairment Nose: no external nose abnormality Mouth: + poor dentition (as prior, teeth not straight / evidence of lacking care.); no lip abnormality Neck: trachea midline, no thyromegaly normal visual inspection Respiratory: normal respiratory effort and able to speak in complete sentences; no respiratory distress and does not use accessory muscles Cardiovascular: RRR, no murmur, no edema Gastrointestinal (Abdomen): normal bowel sounds, soft, nontender, no hepatosplenomegaly Inspection/Auscultation: abdomen normal to inspection and + abdominal surgical incision (c/d/i x3, all glue still intact); abdomen not distended, no abdominal wall ecchymosis and no abdominal edema cision is completely intact and the glue over it is undisturbed, so I'm confident there was never actually a gap. Discussed with the patient that this technique has merit and it will likely heal flat, and is nothing to be concerned about. Psychiatric: A+Ox3, euthymic affect Results & Data ([facility]) Vital Signs (Past 12 Hours) Vital Signs Temp Pulse Resp BP Pulse Ox 08/19/20 15:50 97.9 F 62 18 110/62 99 08/19/20 11:30 98.2 F 68 18 119/73 100 08/19/20 07:45 97.7 F 66 18 120/69 100 PG Care Time/CCT Total # of Minutes Spent Total Time Spent with Patient: Total time spent is greater than 50% in coordination of care (as documented) at patient's floor/unit and/or counseling patient: Coding Level of Care Code D/C Day Management >30 mins Diagnoses Chemical peritonitis following a procedure T81.61XA
--- NOTE | 2020-08-19 17:28 | Discharge Summary ---
Date of Service August 19, 2020 Admission Exam (Per Admitting) Eyes PERRL, conjunctivae normal, anicteric sclerae ENMT Ears: no hearing impairment Nose: no external nose abnormality Mouth: + poor dentition (as prior, teeth not straight / evidence of lacking care.); no lip abnormality Neck trachea midline, no thyromegaly normal visual inspection Respiratory normal respiratory effort and able to speak in complete sentences; no respiratory distress and does not use accessory muscles Cardiovascular RRR, no murmur, no edema Gastrointestinal (Abdomen) Inspection/Auscultation: + abdominal surgical incision (c/d/i x3) Percussion/Palpation: + abdomen tender (worst in epigastrium, LUQ. 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 Possible bacterial peritonitis also considered, given concurrent TLH with open vaginal canal. Managed with NPO, anti-inflammatory, antibiotic, and plan for dx scope and washout the next day. She was taken to the OR for that procedure; see op report for details. Significant inflammatory material was rinsed out, adhesions were bluntly lysed, and the abdomen was copiously irrigated once again with warm normal saline. Since the surgery, she has evidenced rapid and marked clinical improvement with return of bowel function, resolution of nausea, has not required narcotic pain meds and is not c/o pain, and is afebrile x more than 24 hours here with resolution of leukocytosis as well. She is now taking regular diet PO, taking her home meds PO, and is at this time ready for discharge home. Given her prior condition, and the fact that she presented only at the time of a routine checkup yet was severely ill, I have spent significant time at her bedside today reviewing specific precautions and reasons to call me. She took notes of these while we chatted, and I have written instructions in her disc harge notes here as well. She will take colace daily to counteract any constipation as she is fearful of that occurring since she has not had a BM yet postoperatively; reassured her this may yet take a few days due to anesthesia and decreased bowel motility perioperatively and still be normal. She can use NSAIDS, then percocet if needed, but should notify me if she requires narcotic twice or more in a day. She should continue PO clindamycin for 10 days. My office will also reach out to schedule a visit in roughly a week, but patient is aware that she should call us if that does not occur as expected, and that she should persist in reaching out to us if she needs to speak to someone but does not promptly hear back. She does have the patient portal and is aware of messaging capability as well. Coding Level of Care Code None Diagnoses Chemical peritonitis following a procedure T81.61XA
== END 2020-08-19 19:00 | disposition home or self-care (01) ==
LOC: ED 13:45 → 4N 18:19 → INTOOBSV 18:19 → 4N 21:43